=== PATIENT | female | born 1955 | race Caucasian/White ===

== ENCOUNTER → 2016-05-25 | Outpatient (CLI) | payer BC | LOC: MC.RAD 13:20 | DX: Z12.31 Encounter for screening mammogram for malignant neoplasm of breast (principal); Z80.3 Family history of malignant neoplasm of breast ==

== ENCOUNTER → 2017-10-27 | Outpatient (CLI) | payer BC ==
[~2017-10-27] VITALS: Ht 157.5 cm; Wt 121.8 kg
[~2017-10-27] MED LIST: GLUCOPHAGE850 MG/TAB PO; PROZAC 20MG20 MG PO; QSYMIA PO
[2017-10-27 08:19] VITALS: BP 124/84; PULSE 76
== END ==
LOC: LIGHT 07:53
DX: G47.33 Obstructive sleep apnea (adult) (pediatric) (principal); R73.01 Impaired fasting glucose; F32.9 Major depressive disorder, single episode, unspecified; E66.01 Morbid (severe) obesity due to excess calories; Z68.42 Body mass index [BMI] 45.0-49.9, adult; Z71.3 Dietary counseling and surveillance
CPT/HCPCS: G0463

== ENCOUNTER → 2017-11-29 | Outpatient (CLI) | payer BC | LOC: LIGHT 11:32 | DX: G47.33 Obstructive sleep apnea (adult) (pediatric) (principal); R73.01 Impaired fasting glucose; F32.9 Major depressive disorder, single episode, unspecified; E66.01 Morbid (severe) obesity due to excess calories; Z68.42 Body mass index [BMI] 45.0-49.9, adult; Z71.3 Dietary counseling and surveillance ==

== ENCOUNTER → 2017-12-01 | Outpatient (CLI) | payer BC ==
[~2017-12-01] VITALS: Ht 157.5 cm; Wt 119.5 kg
[2017-12-01 13:29] VITALS: BP 128/80; PULSE 80
== END ==
LOC: LIGHT 13:01
DX: G47.33 Obstructive sleep apnea (adult) (pediatric) (principal); R73.01 Impaired fasting glucose; F32.9 Major depressive disorder, single episode, unspecified; E66.01 Morbid (severe) obesity due to excess calories; Z68.42 Body mass index [BMI] 45.0-49.9, adult; Z71.3 Dietary counseling and surveillance
CPT/HCPCS: G0463

== ENCOUNTER → 2017-12-29 | Outpatient (CLI) | payer BC ==
[~2017-12-29] VITALS: Ht 157.5 cm; Wt 119.1 kg
[2017-12-29 14:35] VITALS: BP 130/70; PULSE 68
== END ==
LOC: LIGHT 11:56
DX: G47.33 Obstructive sleep apnea (adult) (pediatric) (principal); R73.01 Impaired fasting glucose; F32.9 Major depressive disorder, single episode, unspecified; E66.01 Morbid (severe) obesity due to excess calories; Z68.42 Body mass index [BMI] 45.0-49.9, adult; Z71.3 Dietary counseling and surveillance
CPT/HCPCS: G0463

== ENCOUNTER → 2018-02-09 | Outpatient (CLI) | payer BC ==
[~2018-02-09] VITALS: Ht 157.5 cm; Wt 115.4 kg
[2018-02-09 09:29] VITALS: BP 128/80; PULSE 56
== END ==
LOC: LIGHT 09:16
DX: G47.33 Obstructive sleep apnea (adult) (pediatric) (principal); R73.01 Impaired fasting glucose; F32.9 Major depressive disorder, single episode, unspecified; E66.01 Morbid (severe) obesity due to excess calories; Z68.42 Body mass index [BMI] 45.0-49.9, adult; Z71.3 Dietary counseling and surveillance
CPT/HCPCS: G0463

== ENCOUNTER → 2018-02-16 | Outpatient (CLI) | payer BC | LOC: LIGHT 09:03 | DX: G47.33 Obstructive sleep apnea (adult) (pediatric) (principal); R73.01 Impaired fasting glucose; F31.9 Bipolar disorder, unspecified; E66.01 Morbid (severe) obesity due to excess calories; Z68.42 Body mass index [BMI] 45.0-49.9, adult; Z71.3 Dietary counseling and surveillance ==

== ENCOUNTER → 2018-03-09 | Outpatient (CLI) | payer BC ==
[~2018-03-09] VITALS: Ht 157.5 cm; Wt 114.5 kg
[2018-03-09 16:09] VITALS: BP 126/90; PULSE 88
== END ==
LOC: LIGHT 15:22
DX: G47.33 Obstructive sleep apnea (adult) (pediatric) (principal); R73.01 Impaired fasting glucose; F32.9 Major depressive disorder, single episode, unspecified; E66.01 Morbid (severe) obesity due to excess calories; Z68.42 Body mass index [BMI] 45.0-49.9, adult; Z71.3 Dietary counseling and surveillance
CPT/HCPCS: G0463

== ENCOUNTER → 2018-04-07 | Outpatient (CLI) | payer BC | LOC: BHSO 08:57 | DX: Z01.818 Encounter for other preprocedural examination (principal) ==

== ENCOUNTER → 2018-04-10 | Outpatient (CLI) | payer BC | LOC: COL.RAD 11:02 | DX: E01.0 Iodine-deficiency related diffuse (endemic) goiter (principal) ==

== ENCOUNTER → 2018-04-13 | Outpatient (CLI) | payer BC ==
[~2018-04-13] VITALS: Ht 157.5 cm; Wt 113.4 kg
[~2018-04-13] MED LIST changes: +ADIPEX-P37.5 MG PO; +TOPAMAX 25MG25 M1 PO
[2018-04-13 15:40] VITALS: BP 110/80; PULSE 68
== END ==
LOC: LIGHT 13:40
DX: G47.33 Obstructive sleep apnea (adult) (pediatric) (principal); R73.01 Impaired fasting glucose; F32.9 Major depressive disorder, single episode, unspecified; E66.01 Morbid (severe) obesity due to excess calories; Z71.3 Dietary counseling and surveillance

== ENCOUNTER → 2018-04-13 | Outpatient (CLI) | payer BC | LOC: MC.RAD 07:22 | DX: Z12.31 Encounter for screening mammogram for malignant neoplasm of breast (principal) ==

== ENCOUNTER → 2018-06-01 | Outpatient (CLI) | payer BC ==
[~2018-06-01] VITALS: Ht 157.5 cm; Wt 114.5 kg
[2018-06-01 09:51] VITALS: BP 138/80; PULSE 80
== END ==
LOC: LIGHT 09:43
DX: G47.33 Obstructive sleep apnea (adult) (pediatric) (principal); R73.01 Impaired fasting glucose; F32.9 Major depressive disorder, single episode, unspecified; E66.01 Morbid (severe) obesity due to excess calories; Z68.42 Body mass index [BMI] 45.0-49.9, adult; Z71.3 Dietary counseling and surveillance
CPT/HCPCS: G0463

== ENCOUNTER 2018-10-16 13:01 | Emergency (ER) | payer BC ==
[~2018-10-16] VITALS: Ht 157.5 cm; Wt 114.5 kg
[2018-10-16 13:11] VITALS: TEMP 98.6
[2018-10-16 15:55] VITALS: BP 145/87; PULSE 92
== END 2018-10-16 15:55 | disposition home or self-care (01) ==
LOC: COL.ER 13:01
DX: K56.41 Fecal impaction (principal)

== ENCOUNTER → 2019-07-03 | Outpatient (CLI) | payer BC | LOC: MC.RAD 07:14 | DX: Z12.31 Encounter for screening mammogram for malignant neoplasm of breast (principal) ==

== ENCOUNTER → 2020-07-24 | Outpatient (CLI) | payer BC | LOC: MC.RAD 09:45 | DX: Z12.31 Encounter for screening mammogram for malignant neoplasm of breast (principal) ==